=== PATIENT | male | born 1955 | race Caucasian/White ===

== ENCOUNTER 2016-10-18 11:03 | Emergency (ER) | payer OTHER ==
[~2016-10-18] VITALS: Ht 170.2 cm; Wt 95.5 kg
[~2016-10-18 11:03] MED LIST: ACETAMINOPHEN-1 EAC1; ACETAMINOPHEN-1 EAC4 PO; ALAVERT10 MG PO; ALLEGRA; ASPIR 8181 M1 PO; ATENOLOL50 MG PO; ATORVASTATIN CA80 MG PO; BENTYL10 MG PO; CENTRUM SILVER1 EAC1 PO; CIPRO500 MG PO; CLARITIN-D 121 EACH PO; CLARITIN10 M3 PO; CLARITIN10 MG PO; CLONAZEPAM0.5 MG PO; COMBIVENT RESPIMAT I; CORLANOR5 MG PO; CRESTOR5 MG PO; Claritin,Alavart PO; Colace PO; Coreg PO; DILAUDID2 MG PO; DOXYCYCLINE HY100 M1 PO; DOXYCYCLINE HY100 MG; DURAGESIC25 MCG TD; FLAGYL500 MG PO; FLOMAX0.4 M1 PO; FLOVENT DISKUS1 DIS2 NS; FLUOXETINE HCL20 MG; FLUOXETINE HCL20 MG PO; FLUTICASONE PRO16 GM; Flonase BOTH NARES; GABAPENTIN300 MG; GEODON20 MG PO; GEODON40 MG PO; GUIATUSS100 MG/5 M PO; Habitrol,Nicoderm CQ TD; KENALOG,ARISTOC15 G2; KLONOPIN0.5 M1; KLONOPIN0.5 M1 PO; KlonoPIN PO; LIPITOR40 MG PO; LIPITOR80 MG PO; LISINOPRIL5 MG; LISINOPRIL5 MG PO; LIVALO2 MG PO; LO-DOSE ASPIRIN81 M1 PO; LO-DOSE ASPIRIN81 M2 PO; LORATADINE10 M2; LOW DOSE ASPIRI81 M2 PO; Lasix PO; Lovenox SC; MELOXICAM7.5 MG; MIRALAX255 GM PO; MOBIC7.5 MG PO; MOTRIN600 MG PO; Micro-K,K-Tab,K-Dur, PO; NAPROXEN SODIU550 MG PO; NAPROXEN500 MG PO; NASONEX17 GM; NASONEX17 GM BOTH NARES; OMEPRAZOLE40 M1 PO; PERCOCET 5/31 TABLET PO; PERPHENAZINE2 MG; PLAVIX75 MG PO; PREDNISONE20 MG PO; PROMETHAZINE HC25 M1 PO; PROZAC20 M1 PO; PROZAC20 MG PO; PROzac PO; Plavix PO; QUETIAPINE FUMA25 MG; RANITIDINE HCL150 M1 PO; RANITIDINE HCL150 MG; RANITIDINE HCL150 MG PO; Remove Nicotine Patc TD; SEROQUEL12.5 MG PO; SPIRIVA1 INHALATI IH; TOPIRAMATE25 MG PO; TRILAFON2 MG PO; TYLENOL COLD &1 EACH PO; TYLENOL W/COD1 COMB1 PO; Theragran PO; Vibramycin, Doryx PO; Vicodin,Norco 5/325 PO; Vitamin D PO; ZANTAC150 MG PO; ZIPRASIDONE HCL20 MG; ZIPRASIDONE HCL40 MG PO; ZIPRASIDONE HCL60 MG PO; ZOFRAN ODT4 MG PO; Zestril,Prinivil PO; [UNRECOGNIZED DRUG - REMARK]
[2016-10-18 12:03] LABS: ADD MIUA? NO; BILIRUBIN NEGATIVE; BLOOD NEGATIVE; COLOR YELLOW ((YELLOW)); GLUCOSE (STRIP) NEGATIVE; KETONES NEGATIVE; LEUKOCYTES NEGATIVE; NITRITE NEGATIVE; PROTEIN (STRIP) NEGATIVE; SPECIFIC GRAVITY 1.027 (1.000-1.030); UCUL ADDED? NO
[2016-10-18 12:17] LABS: HEMATOCRIT 42.1 % (38.0-50.0); MCH 31.5 PG (29.0-34.0); MCHC 34.7 G/DL (30.0-36.0); MCV 90.9 FL (86-99); MEAN PLAT.VOLUME 10.1 uM^3 (9.0-12.4); PLATELET COUNT 228 K/uL (156-360); RBC DIS.WIDTH-CV 12.9 % (11.8-14.6); RBC DIS.WIDTH-SD 42.4 % (39-53); RED BLOOD COUNT 4.63 M/uL (4.00-5.50); WHITE BLOOD COUNT 8.3 K/uL (4.1-10.2)
[2016-10-18 12:28] LABS: CHLORIDE 113 mEq/L (99-109); POTASSIUM 3.8 mEq/L (3.7-5.4); SODIUM 141 mEq/L (136-147)
[2016-10-18 12:30] LABS: GLUCOSE 103 mg/dL (70-99)
[2016-10-18 12:31] LABS: ANION GAP 9 MEQ/L (2-14)
[2016-10-18 12:34] LABS: GFR ESTIMATE (CALCULATED) > 59 mL/min/
[2016-10-18 12:35] LABS: UREA NITROGEN (BUN) 18 mg/dL (9-23)
[2016-10-18] MEDS ORDERED: PERCOCET 5/31 TABLET PO (13:01)
[2016-10-18 13:17] VITALS: BP 144/92
== END 2016-10-18 13:52 | disposition home or self-care (01) ==
LOC: EME → EDBD 11:03 → EME 11:03
PROVIDERS: Emergency Medicine
DX: N20.0 Calculus of kidney (principal); E78.5 Hyperlipidemia, unspecified; I25.2 Old myocardial infarction; Z87.442 Personal history of urinary calculi; Z79.82 Long term (current) use of aspirin; F17.200 Nicotine dependence, unspecified, uncomplicated
CPT/HCPCS: 80048; 81003; 85027; 99281; 99284; J2270; J2405; J7030

== ENCOUNTER 2017-05-17 17:35 | Emergency (ER) | payer OTHER ==
[~2017-05-17] VITALS: Ht 170.2 cm; Wt 97.4 kg
[2017-05-17 18:49] LABS: HEMATOCRIT 41.7 % (38.0-50.0); MCH 30.2 PG (29.0-34.0); MCHC 32.6 G/DL (30.0-36.0); MCV 92.7 FL (86-99); MEAN PLAT.VOLUME 9.5 uM^3 (9.0-12.4); PLATELET COUNT 345 K/uL (156-360); RBC DIS.WIDTH-CV 13.4 % (11.8-14.6); RBC DIS.WIDTH-SD 46.5 % (39-53); WHITE BLOOD COUNT 9.6 K/uL (4.1-10.2)
[2017-05-17 18:57] LABS: CHLORIDE 110 mEq/L (99-109); POTASSIUM 4.1 mEq/L (3.7-5.4); SODIUM 142 mEq/L (136-147)
[2017-05-17 19:00] LABS: GLUCOSE 101 mg/dL (70-99)
[2017-05-17 19:01] LABS: ANION GAP 11 MEQ/L (2-14)
[2017-05-17 19:02] LABS: TOTAL BILIRUBIN 0.4 mg/dL (0.0-1.0)
[2017-05-17 19:03] LABS: ALKALINE PHOSPHATASE 102 IU/L (3-129); GFR ESTIMATE (CALCULATED) > 59 mL/min/
[2017-05-17 19:04] LABS: UREA NITROGEN (BUN) 15 mg/dL (9-23)
[2017-05-17 20:31] LABS: ADD MIUA? NO; BILIRUBIN NEGATIVE; BLOOD NEGATIVE; COLOR YELLOW ((YELLOW)); GLUCOSE (STRIP) NEGATIVE; KETONES NEGATIVE; LEUKOCYTES NEGATIVE; NITRITE NEGATIVE; PROTEIN (STRIP) 30; SPECIFIC GRAVITY 1.029 (1.000-1.030); UCUL ADDED? NO; UROBILINOGEN 0.2 MG/DL (0.2-1.0)
[2017-05-17] MEDS ORDERED: PREDNISONE10 M1 PO (22:28)
[2017-05-17] MEDS ORDERED: KENALOG,ARISTOC15 G2 TP (22:28)
[2017-05-17 22:46] VITALS: BP 155/89
== END 2017-05-17 22:48 | disposition home or self-care (01) ==
LOC: EME 17:35
DX: K51.911 Ulcerative colitis, unspecified with rectal bleeding (principal); L30.9 Dermatitis, unspecified; I25.2 Old myocardial infarction; E78.5 Hyperlipidemia, unspecified; Z79.02 Long term (current) use of antithrombotics/antiplatelets; Z79.82 Long term (current) use of aspirin; F17.200 Nicotine dependence, unspecified, uncomplicated
CPT/HCPCS: 74176; 80053; 81003; 85027; 99281; 99284; J2930

== ENCOUNTER → 2018-01-28 | Outpatient (CLI) | payer OTHER ==
[~2018-01-28] VITALS: Ht 171.4 cm; Wt 96.6 kg
[~2018-01-28] MED LIST changes: +APRISO0.375 GM PO; +CYMBALTA20 MG PO; +HYDROCORTISONE25 MG PO; +KENALOG,ARISTOC15 G2 TP; +MUCINEX600 MG PO; +PREDNISONE10 M1 PO; +PROAIR HFA8.5 GM IH
== END | disposition home or self-care (01) ==
LOC: AMB 13:27
DX: K58.9 Irritable bowel syndrome, unspecified (principal); K21.9 Gastro-esophageal reflux disease without esophagitis; K44.9 Diaphragmatic hernia without obstruction or gangrene; K64.8 Other hemorrhoids; Z87.891 Personal history of nicotine dependence; Z79.82 Long term (current) use of aspirin
CPT/HCPCS: 88305; 88342 TC; J2250

== ENCOUNTER 2018-02-01 18:17 | Emergency (ER) | payer OTHER ==
[~2018-02-01] VITALS: Ht 170.2 cm; Wt 101.7 kg
[~2018-02-01 18:17] MED LIST changes: -HYDROCORTISONE25 MG PO
[2018-02-01 19:29] LABS: BASOPHIL (%) 0.3 % (0-1); EOSINOPHIL (%) 0.1 % (0-5); HEMATOCRIT 43.1 % (38.0-50.0); IMMATURE GRANULOCYTE (%) 0.4 % (0.0-0.7); LYMPHOCYTE (%) 24.3 % (15-42); LYMPHOCYTE COUNT 2.9 K/uL (1.0-2.8); MCH 31.5 PG (29.0-34.0); MCHC 34.8 G/DL (30.0-36.0); MCV 90.5 FL (86-99); MONOCYTE (%) 5.6 % (3-12); MONOCYTE COUNT 0.7 K/uL (0-0.8); NEUTROPHIL (%) 69.3 % (45-76); NEUTROPHIL COUNT 8.4 K/uL (1.8-6.4); PLATELET COUNT 303 K/uL (156-360); RBC DIS.WIDTH-CV 13.4 % (11.8-14.6); RBC DIS.WIDTH-SD 45.1 % (39-53); RED BLOOD COUNT 4.76 M/uL (4.00-5.50); WHITE BLOOD COUNT 12.1 K/uL (4.1-10.2)
[2018-02-01 19:37] LABS: ALBUMIN 4.1 g/dL (3.2-4.8); CHLORIDE 108 mEq/L (99-109); POTASSIUM 3.9 mEq/L (3.7-5.4); SODIUM 142 mEq/L (136-147)
[2018-02-01 19:40] LABS: GLUCOSE 110 mg/dL (70-99); TOTAL PROTEIN 6.9 g/dL (6.4-8.3)
[2018-02-01 19:42] LABS: TOTAL BILIRUBIN 0.2 mg/dL (0.0-1.0)
[2018-02-01 19:43] LABS: ALKALINE PHOSPHATASE 104 IU/L (3-129); CREATININE 1.1 mg/dL (0.6-1.3); GFR ESTIMATE (CALCULATED) > 59 mL/min/ (58.99-99999)
[2018-02-01 19:45] LABS: AST (GOT) 17 IU/L (2-34); UREA NITROGEN (BUN) 15 mg/dL (9-23)
[2018-02-01 19:46] LABS: ALT (GPT) 24 IU/L (3-49)
[2018-02-01 19:47] LABS: LIPASE 20 U/L (1.0-51.0)
[2018-02-01 20:36] LABS: APPEARANCE CLEAR ((CLEAR)); BILIRUBIN NEGATIVE; BLOOD NEGATIVE; COLOR YELLOW ((YELLOW)); GLUCOSE (STRIP) NEGATIVE; KETONES NEGATIVE; LEUKOCYTES NEGATIVE; NITRITE NEGATIVE; PROTEIN (STRIP) NEGATIVE; SPECIFIC GRAVITY 1.023 (1.000-1.030); UCUL ADDED? NO; UROBILINOGEN 0.2 MG/DL (0.2-1.0)
[2018-02-01] MEDS ORDERED: KENALOG,ARISTOC15 G2 TP (21:24)
[2018-02-01] MEDS ORDERED: HYDROCORTISONE25 MG PO (21:24)
[2018-02-01 21:32] VITALS: BP 157/111
== END 2018-02-01 21:46 | disposition home or self-care (01) ==
LOC: EME 18:17
PROVIDERS: Emergency Medicine
DX: K62.89 Other specified diseases of anus and rectum (principal); R10.9 Unspecified abdominal pain; L30.9 Dermatitis, unspecified; M54.5 Low back pain; E78.5 Hyperlipidemia, unspecified; F20.9 Schizophrenia, unspecified; I25.2 Old myocardial infarction; Z87.442 Personal history of urinary calculi; Z87.891 Personal history of nicotine dependence; Z90.49 Acquired absence of other specified parts of digestive tract; Z79.82 Long term (current) use of aspirin; Z79.02 Long term (current) use of antithrombotics/antiplatelets; Z88.6 Allergy status to analgesic agent; Z88.8 Allergy status to other drugs, medicaments and biological substances
CPT/HCPCS: 72131; 74176; 80053; 81003; 83690; 85025; 99281; 99284